=== PATIENT | male | born 1955 | race Caucasian/White ===

== ENCOUNTER → 2020-07-16 15:28 | Outpatient (CLI) | payer MEDICARE, BC, SELFPAY ==
[2020-07-16 16:30] LABS: Anion Gap 4 (5-15); BUN 18 mg/dL (7-18); BUN/Creat Ratio 15.7 RATIO (10-20); Calcium,Total 9.2 mg/dL (8.5-10.1); Chloride 106 mmol/L (98-107); Creatinine, Serum 1.15 mg/dL (0.70-1.30); EST Glomerular Filtration Rate 68 mL/min (>60); Est Glom Filt Rate - Afr Amer 82 mL/min (>60); Glucose 95 mg/dL (74-106); Potassium 3.9 mmol/L (3.5-5.1); Sodium Level 139 mmol/L (136-145)
== END ==
PROVIDERS: PCP Family Medicine; Referring Provider Nurse Practitioner Adult Health; Visit Provider Nurse Practitioner Adult Health
DX: R33.8 Other retention of urine (principal)
CPT/HCPCS: 36415; 80048

== ENCOUNTER 2020-08-14 09:11 | Day surgery (SDC) | payer MEDICARE, BC, SELFPAY ==
[2020-08-14] VITALS (11 sets, daily range): BP systolic 102–141; BP diastolic 54–93; PULSE 70–100; RESP 16–18; TEMP 35.9–36.8; O2SAT 95–100; BMI 31.6
--- NOTE | 2020-08-14 | PROS_PTH ---
PATIENT: BECKIE GILLETTE LOC: [facility] – [place] U#:[id number] AGE/SX: 65/M ROOM: RE08/14/[address]: Dr. Levy Dale MD : 1955 BED: DIS: 08/15/2020 SPEC #: [id number] RECD: 08/14/20 13:42 STATUS: STEWART ZELAYA #: [id number] JARON: 08/14/20 00:[address]: Levy Dale DEPT: SURGICAL PATHOLOGY RECD BY: Stephen Monet ENTERED: 08/15/20 08:41 SP TYPE: TURP OTHR DR: Dr. Jaron Atkins, DO Tissues: Prostate, NOS Procedures: Surgery Specimen Level IV HEADER OPERATION: Cysto, TUR prostate, [facility] PRE-OP DIAGNOSIS: Benign prostatic hyperplasia TISSUE SUBMITTED: Prostate tissue MICROSCOPIC DIAGNOSIS Prostate, transurethral resection: Benign nodular hyperplasia, glandular and stromal types. Chronic prostatitis. Urothelium with mild chronic inflammation. AM:belinda 08/16/2020 MICROSCOPIC DESCRIPTION Slides are reviewed. GROSS DESCRIPTION Received is one container labeled with the patient's name and designated prostate tissue. The specimen consists of multiple irregular fragments of pink-ellis, rubbery, soft tissue that in aggregate weigh 3.1 gm and measure in aggregate 3 x 3 x 1 cm. The entire specimen is submitted in three cassettes. / SJ:belinda 08/15/20 TC:3 CPT: 64482
--- NOTE | 2020-08-14 09:15 | EKG12_ITS ---
Test Reason : PRE OP Blood Pressure : / mmHG Vent. Rate : 076 BPM Atrial Rate : 076 BPM P-R Int : 174 ms QRS Dur : 096 ms QT Int : 384 ms P-R-T Axes : 064 -05 023 degrees QTc Int : 432 ms Normal sinus rhythm Normal ECG Confirmed by NALLELY GARCIA, JC ([id number]), food editor CAREN GAVIRIA ([id number]) on 08/15/2020 9:05:44 AM Referred By: Levy Dale Confirmed By:JC BROWNING MD
[2020-08-14] MEDS: Lactated Ringers 1,000 ML 100 ML IV (09:50)
[2020-08-14] MEDS: Cefazolin 2 GM in 0.9% Normal Saline 100 ML IV (12:14)
--- NOTE | 2020-08-14 12:23 | HP.PCM_ITS ---
HPI - General HPI Narrative BECKIE GILLETTE, is a 65 M who presents for transurethral resection of the prostate. [facility] Medical History (Updated 08/14/20 @ 12:[address] Levy Dale MD) Anxiety Back pain Former smoker History of stress test Lipoma of back Restless legs Wears glasses Home Medications aspirin 81 mg PO DAILY 08/07/20 [History Last Taken 08/03/20] bupropion HCl 300 mg PO DAILY 08/07/20 [History Last Taken 08/14/20 08:30] dutasteride 0.5 mg PO DAILY 08/07/20 [History Last Taken 08/13/20] multivitamin 1 tab PO DAILY 08/07/20 [History Last Taken 08/13/20] omega-3 fatty acids 1,000 mg PO DAILY 08/07/20 [History Last Taken 08/13/20] tamsulosin [Flomax] 0.4 mg PO QHS 08/07/20 [History Last Taken 08/13/20] ciprofloxacin HCl [Cipro] 500 mg PO BID #14 tab 08/14/20 [Rx Last Taken Unknown] Allergy/AdvReac Type Severity Reaction Status Date / Time No Known Allergies Allergy Verified 08/14/20 09:30 Surgical History (Updated 08/07/20 @ 14:30 by Estela Morfin) History of carpal tunnel surgery of left wrist History of carpal tunnel surgery of right wrist History of tonsillectomy Hx of colonoscopy Social History Smoking Status: Former smoker Vital Signs Vital Signs Vital Signs: 08/14/20 09:37 Temperature 96.6 F L Temperature Source Temporal Pulse Rate 75 Respiratory Rate 18 Respiratory Pattern Normal Blood Pressure 133/93 H Blood Pressure Mean 106 Pulse Ox 95 Oxygen Delivery Method Room Air Physical Exam Const alert and oriented x3 General Appearance: cooperative HEENT normocephalic, head/scalp atraumatic, EAC's normal and TM's normal bilaterally Eyes PERRL and EOMs intact bilaterally Pupil: sluggish Neck no lymphadenopathy, supple and no JVD General: trachea midline Lymph Lymphatic: no lymphadenopathy noted, lymphedema and lymphadenopathy Resp normal respiratory effort, normal air movement and clear to auscultation bilaterally Cardio regular rate, regular rhythm and peripheral pulses 2+ throughout GI soft to palpation, non-tender and non-distended Extremity normal capillary refill and no clubbing, cyanosis or edema General Extremity: no tenderness to palpation of joints or extremities Skin no rashes or lesions noted General Skin Exam: turgor normal Lesions: no lesions Rashes: no rashes Neuro CN's II-XII intact bilaterally Speech: speech normal Motor Exam: strength 5/5 throughout; Negative for general weakness Psych thought process normal, cooperative and affect normal Appearance: appropriate Assessment & Plan Assessment/Plan (1) BPH (benign prostatic hyperplasia): Status: Acute Code(s): N40.0 - Benign prostatic hyperplasia without lower urinary tract symptoms Plan: Plan to proceed with transurethral section of prostate with Dr. The patient preoperatively about the surgery done with expected afterwards we talked about the risk and benefits and complications.
--- NOTE | 2020-08-14 12:24 | PCM.DC ---
Discharge Instructions Outpatient Procedure Reason For Visit: CYSTO TURP OLYMPUS Diet Discharge Diet: No restrictions Activity Discharge Activity: May not drive while taking narcotic pain medications. Return to work on:: 08/28/20 May shower in (days): 1 May resume sexual activity in: 6-8 weeks Dressing / Incision Call your doctor if your incision/area has: Continuous Slow Oozing, Sudden Increased Bleeding, Increased Pain/ Swelling, Increased Redness, Foul Smelling Discharge and Swelling at the incision site Call your doctor if you observe: Fever of 101 or Higher and Inability to urinate Follow Up Care Please Follow Up With: Levy Dale MD When: call for appt. Test Results: Test results from this visit will be discussed in further detail at your follow-up appointment, if applicable. Discharge Plan Admission Primary Reason for Your Visit: Transurethral resection of prostate Attending Provider: Levy Dale Primary Care Provider: Jaron Atkins Instructions Patient Instructions: Transurethral Resection of the Prostate (TURP): Home Recovery Additional Instructions / Restrictions: NO lifing for 3 - 4 weeks Discharge Orders/Prescriptions Prescriptions: New ciprofloxacin HCl [Cipro] 500 mg tablet 500 mg PO BID Qty: 14 RF: 0 Continued multivitamin Tablet 1 tab PO DAILY RF: 0 tamsulosin [Flomax] 0.4 mg Capsule 0.4 mg PO QHS RF: 0 dutasteride 0.5 mg Capsule 0.5 mg PO DAILY RF: 0 bupropion HCl 300 mg Tablet Extended Release 24 Hr 300 mg PO DAILY RF: 0 omega-3 fatty acids 500 mg Capsule 1,000 mg PO DAILY RF: 0 Held aspirin 81 mg Tablet,Delayed Release (Dr/Ec) 81 mg PO DAILY RF: 0 Hold Instructions: Resume on 09/11/20. Referrals: Jaron Atkins DO [Primary Care Provider] -
--- NOTE | 2020-08-14 13:01 | PCM.OPRPT ---
Problems Associated Problem List Diagnoses (1) BPH (benign prostatic hyperplasia): Report of Operation Date of Procedure: 08/14/20 Pre-Operative Diagnosis: BPH with obstruction incomplete emptying recurrent urinary tract infections Post-Operative Diagnosis: Same Surgery/Procedure Performed:: Transurethral section of prostate [place] surgeon Description of Surgical Findings:: In the preoperative setting I discussed with the patient how the surgery would be done with expect afterwards. We discussed how a prostate resection is done and we discussed the risk of the surgery including, bleeding, infection, retrograde ejaculation, changes with ejaculation or intercourse,. We discussed the possibility that the resection of the prostate may not alleviate his urinary symptoms. We discussed the small risk of developing scar tissue along the urethral channel and strictures. We also discussed the chance of the prostate could grow back and he may need further surgery or treatment in the future for prostate problems. Patient was taken back to the operating room, timeout procedure was performed, he was identified and marked and placed on the operating room table. He underwent general anesthesia. He was placed in dorsolithotomy position. Penis and testicles were prepped and draped in usual sterile fashion. Went into the bladder using the visual obturator with a resectoscope. Once inside the bladder identified the right and left ureteral orifice. I then identified the prostate and the anatomy of the prostate. He did have a very large distende weak stretched out bladder with a lot of Pus and debris in the floor of the bladder. I marked out the area of the sphincter and the verumontanum was identified. I then proceeded with the prostate resection first resected the median lobe. And then resected the right lobe of the prostate. Then to resect the left lobe of the prostate. I then resected the apical tissue of the prostate. Made sure that there was no injury to the sphincter or the verumontanum was still intact. At the end of the resection all the chips were Ellik out of the bladder. I then identified the left and right ureteral orifice and these were confirmed to be in good position and effluxing and not injured. The resectoscope was removed, a 22 Haitian catheter was placed into the bladder on continuous irrigation. And the urine was fairly light pink color and draining normally. He was taken back to the PACU in good condition. Type of Anesthesia: General Anesthesiologist: Hiram Xie Drains: 22fr [address] Complications none Admit VTE Documentation VTE Present on Admission: No VTE Mechan Device Prophylaxis: SCD's
[2020-08-14] MEDS: Lactated Ringers 1,000 ML 125 ML IV ×2 (13:21→19:50)
[2020-08-14] MEDS: Ketorolac 15 MG/ML Vial IV (13:37)
[2020-08-14] MEDS: Ciprofloxacin 400 MG/200 ML BAG 200 MG IV (21:21)
[2020-08-14] MEDS: Tamsulosin HCl 0.4 MG Capsule PO (21:21)
[2020-08-14] MEDS: Docusate Sodium 100 MG Capsule 200 MG PO (21:21)
[2020-08-15 01:29] VITALS: BP 124/68; PULSE 97; RESP 16; TEMP 36.9; O2SAT 97
[2020-08-15] MEDS: Lactated Ringers 1,000 ML 125 ML IV (04:24)
--- NOTE | 2020-08-15 06:18 | PCM.PN.GU ---
Subjective Subjective: no complaints urine clear Objective Data Objective Data Vital Signs: Vital Signs Temp Pulse Resp BP Pulse Ox 98.5 F 97 16 124/68 H 97 08/15/20 01:29 08/15/20 01:29 08/15/20 01:29 08/15/20 01:29 08/15/20 01:29 Oxygen Delivery Method Room Air Weight: 108.9 kg Body Mass Index (BMI) 31.6 Intake & Output: Intake and Output for Last 24 Hours 08/13/20 08/14/20 08/15/20 23:59 23:59 23:59 Intake Total 2420.42 / 3020.42 2200 / 2200 Output Total 5200 / 5200 800 / 800 Balance -2779.58 / -2179.58 1400 / 1400 Physical Exam Const alert and oriented x3 General Appearance: cooperative HEENT normocephalic, head/scalp atraumatic, EAC's normal and TM's normal bilaterally Eyes PERRL and EOMs intact bilaterally Pupil: sluggish Neck no lymphadenopathy, supple and no JVD General: trachea midline Lymph Lymphatic: no lymphadenopathy noted, lymphedema and lymphadenopathy Resp normal respiratory effort, normal air movement and clear to auscultation bilaterally Cardio regular rate, regular rhythm and peripheral pulses 2+ throughout GI soft to palpation, non-tender and non-distended Extremity normal capillary refill and no clubbing, cyanosis or edema General Extremity: no tenderness to palpation of joints or extremities Skin no rashes or lesions noted General Skin Exam: turgor normal Lesions: no lesions Rashes: no rashes Neuro CN's II-XII intact bilaterally Speech: speech normal Motor Exam: strength 5/5 throughout; Negative for general weakness Psych thought process normal, cooperative and affect normal Appearance: appropriate Assessment & Plan Assessment/Plan (1) BPH (benign prostatic hyperplasia): PLAN: home after chris out. d/c chris, home after voids
--- NOTE | 2020-08-15 06:53 | NURSING ---
Palafox removed, pt tolerated well.
[2020-08-15 07:42] VITALS: BP 131/81; PULSE 90; RESP 16; TEMP 36.8; O2SAT 96
[2020-08-15] MEDS: Multivitamins,Therapeutic Tablet 1 TABLET PO (07:50)
[2020-08-15] MEDS: Ciprofloxacin 400 MG/200 ML BAG 200 MG IV (09:17)
[2020-08-15] MEDS: Finasteride 5 MG Tablet PO (09:19)
[2020-08-15 13:26] VITALS: BP 148/82; PULSE 78; RESP 16; TEMP 36.7; O2SAT 96
== END 2020-08-15 13:16 | disposition home or self-care (01) ==
LOC: SDC 09:11 → AC 09:12 → MS3 15:30
PROVIDERS: PCP Family Medicine; Referring Provider Urology; Visit Provider Urology
PROC: (CPT 52601; principal; 2020-08-14 11:05)
DX: N40.1 Benign prostatic hyperplasia with lower urinary tract symptoms (principal); N13.8 Other obstructive and reflux uropathy; R39.14 Feeling of incomplete bladder emptying; R33.8 Other retention of urine; R35.1 Nocturia; N32.89 Other specified disorders of bladder; G25.81 Restless legs syndrome; F41.9 Anxiety disorder, unspecified; Z79.82 Long term (current) use of aspirin; Z79.899 Other long term (current) drug therapy; Z87.440 Personal history of urinary (tract) infections; Z87.891 Personal history of nicotine dependence
CPT/HCPCS: 00914; 52601; 88305; 93005; 99251; J7120; G0463; J0744; J2405

== ENCOUNTER → 2020-12-31 11:28 | Outpatient (CLI) | payer MEDICARE, BC, SELFPAY ==
[2020-12-31 13:09] LABS: PSA,Total- Diagnostic 1.41 ng/mL (0.0-4.0)
== END ==
PROVIDERS: PCP Family Medicine; Referring Provider Urology; Visit Provider Urology
DX: Z12.5 Encounter for screening for malignant neoplasm of prostate (principal)
CPT/HCPCS: 36415; 84153

== ENCOUNTER → 2022-01-13 | Outpatient (CLI) | payer MEDICARE, BC, SELFPAY ==
[2022-01-13 16:26] LABS: PSA,Total - Annual Screen 3.56 ng/mL (0.00-4.00)
== END | disposition home or self-care (01) ==
LOC: LAB 14:05
PROVIDERS: PCP Family Medicine; Visit Provider Urology
DX: Z12.5 Encounter for screening for malignant neoplasm of prostate (principal)
CPT/HCPCS: 36415; 84153; G0103

== ENCOUNTER → 2023-01-21 | Outpatient (CLI) | payer MEDICARE, BC, SELFPAY ==
[2023-01-21 11:23] LABS: PSA,Total - Annual Screen 1.82 ng/mL (0.00-4.00)
== END | disposition home or self-care (01) ==
LOC: LAB 10:05
PROVIDERS: PCP Family Medicine; Visit Provider Urology
DX: Z12.5 Encounter for screening for malignant neoplasm of prostate (principal)
CPT/HCPCS: 36415; 84153; G0103